=== PATIENT | female | born 1995 | race Caucasian/White ===

== ENCOUNTER 2018-11-22 22:56 | Inpatient (IN) ==
[2018-11-22] MEDS ORDERED: BUTORPHANOL 2 MG/ML VIAL IV PRN (23:08)
[2018-11-22] MEDS ORDERED: ONDANSETRON 4 MG/2 ML VIAL IV PRN (23:08)
[2018-11-22 23:30] LABS: Apearance,Urine CLEAR (Clear); Bilirubin,Urine Negative (Negative); Blood, Urine Small mg/dL (Negative); Glucose,Urine (UA) Negative (Negative); Ketones,Urine Negative (Negative); Mucus,Urine Occasional /LPF (Occasional); Nitrite,Urine Negative (Negative); Protein,Urine Negative; RBC,Urine 2 /HPF (0-4); Squamous Epithelial Cell,Urine Occasional /HPF (0-10); Urine Color Yellow (Yellow); Urine Specific Gravity 1.008 (1.001-1.035); Urine Urobilinogen < 2.0 EU/DL (0.2-1.0); WBC,Urine <1 /HPF (0-6)
[2018-11-22] MEDS: LACTATED RINGERS 1,000 ML IV SCH (23:36)
[2018-11-22 23:42] LABS: Basophils % 0.3 % (0.0-0.8); Eosinophils % 0.2 % (0.00-10.9); Hematocrit 35.8 VOL% (35.7-47.0); Hemoglobin 11.9 GM/DL (12.0-16.0); Immature Granulocytes % 1.7 %; Immature Granulocytes Absolute 0.25 #; Lymphocytes # 2.5 10*3/uL (1.4-4.0); Lymphocytes % 17.3 % (21.3-54.2); Mean Corpuscular HGB Conc 33.2 GM/DL (32-36); Mean Corpuscular Volume 88.8 FL (87-102); Mean Platelet Volume 11.8 FL (9.6-12.0); Neutrophils % 72.5 % (38.7-73.9); Platelet Count 184 T/CUMM (130-400); Red Blood Count 4.03 MC/CUMM (3.8-5.5); Red Cell Distribution Width 13.5 % (9.3-17.3); White Blood Count 14.4 T/CUMM (4-12)
[2018-11-22] MEDS: OXYTOCIN/LR 20 UNIT/1,000 ML BAG IV SCH (23:58)
[2018-11-23 00:03] LABS: Alanine Aminotransferase 14 U/L (13-56); Albumin 2.5 G/DL (3.4-5.0); Alkaline Phosphatase 166 U/L (45-117); Aspartate Amino Transferase 14 U/L (0-37); Bilirubin,Total < 0.39 MG/DL (0.2-1.0); Blood Urea Nitrogen 5 MG/DL (7-18); Glucose 87 MG/DL (74-106); Osmolality,Calculated 272.5 MOS/KG (273-304); Total Protein 6.2 G/DL (6.4-8.3)
[2018-11-23 00:53] LABS: Barbiturates Screen,Urine Negative (Negative); Benzodiazepines Screen,Urine Negative (Negative); Cannabinoid Screen,Urine Negative (Negative); Opiate Screen,Urine Negative (Negative); Phencyclidine Screen,Urine Negative (Negative)
[2018-11-23] MEDS ORDERED: CITRIC ACID/SODIUM CITRATE 30 ML UDCUP PO ONE (06:25)
[2018-11-23] MEDS ORDERED: FAMOTIDINE 20 MG/2 ML VIAL IV ONE (06:25)
[2018-11-23] MEDS ORDERED: PROMETHAZINE 25 MG/1 ML VIAL IM ONE (06:25)
[2018-11-23] MEDS ORDERED: NALOXONE 0.4 MG/ML VIAL IV PRN (06:25)
[2018-11-23] MEDS ORDERED: diphenhydrAMINE 50 MG/1 ML VIAL IV PRN (06:25)
[2018-11-23] MEDS ORDERED: hydrOXYzine HCL 25 MG/1 ML VIAL IM PRN (06:25)
[2018-11-23] MEDS ORDERED: ePHEDrine 50 MG/ML AMP IV PRN (06:25)
[2018-11-23] MEDS: LACTATED RINGERS 1,000 ML IV SCH ×2 (06:31→08:53)
[2018-11-23] MEDS: fentaNYL 2 MCG/ROPIV 0.2% EPID 100 ML EPIDURAL SCH ×2 (08:52→14:20)
[2018-11-23 09:13] LABS: Apearance,Urine CLEAR (Clear); Bilirubin,Urine Negative (Negative); Blood, Urine Small mg/dL (Negative); Glucose,Urine (UA) Negative (Negative); Ketones,Urine Negative (Negative); Nitrite,Urine Negative (Negative); Protein,Urine Negative; RBC,Urine <1 /HPF (0-4); Squamous Epithelial Cell,Urine Occasional /HPF (0-10); Urine Color Yellow (Yellow); Urine Specific Gravity 1.008 (1.001-1.035); Urine Urobilinogen < 2.0 EU/DL (0.2-1.0); WBC,Urine 1 /HPF (0-6)
[2018-11-23] MEDS: cefOXitin 2,000 MG in SYRINGE 1 EACH IV SCH ×2 (14:28→21:31)
[2018-11-23] MEDS ORDERED: LIDOCAINE 1% 50 ML VIAL ONE (16:07)
[2018-11-23] MEDS ORDERED: CARBOPROST TROMETHAMINE 250 MCG/ML AMP IM ONE (16:08)
[2018-11-23] MEDS ORDERED: METHYLERGONOVINE 0.2 MG/1 ML AMP ONE (16:08)
[2018-11-23] MEDS ORDERED: miSOPROStol 200 MCG TABLET ONE ×2 (16:08→16:11)
[2018-11-23 16:57] LABS: Cord Arterial Blood HCO3 22.7 MMOL/L
[2018-11-23 17:00] LABS: Cord Venous Blood HCO3 21.1 MMOL/L; Cord Venous Blood PCO2 38.9 MMHG; Cord Venous Blood PO2 35.6 MMHG
[2018-11-23] MEDS: OXYTOCIN/LR 20 UNIT/1,000 ML BAG IV SCH (17:31)
[2018-11-23] MEDS ORDERED: LANOLIN 50% CREAM 0.3 OZ TUBE TOP PRN (20:28)
[2018-11-23] MEDS ORDERED: BENZOCAINE 20%/MENTHOL 0.5% SPRAY 56 GM CAN TOP PRN (20:28)
[2018-11-23] MEDS ORDERED: DIPH/TET/ACEL PERT BOOSTER VACCINE 0.5 ML VIAL IM ONE (20:28)
[2018-11-23] MEDS ORDERED: RHO(D) IMMUNE GLOBULIN 300 MCG SYRINGE IM ONE (20:28)
[2018-11-23] MEDS ORDERED: ACETAMINOPHEN 325 MG TABLET PO SCH (20:28)
[2018-11-23] MEDS ORDERED: MEASLES/MUMPS/RUBELLA VACCINE 0.5 ML VIAL SUBCUT ONE (20:28)
[2018-11-23] MEDS ORDERED: HYDROCORTISONE 2.5% RECTAL CREAM 30 GM TUBE TOP PRN (20:28)
[2018-11-23] MEDS ORDERED: WITCH HAZEL PADS 100/JAR TOP PRN (20:28)
[2018-11-23] MEDS ORDERED: BISACODYL 10 MG SUPP RECTAL PRN (20:28)
[2018-11-23] MEDS ORDERED: KETOROLAC 30 MG/1 ML VIAL IV SCH (21:00)
[2018-11-23] MEDS: SERTRALINE 50 MG TABLET PO SCH (21:26)
[2018-11-23] MEDS: DOCUSATE SODIUM 100 MG CAPSULE PO SCH (21:26)
[2018-11-23] MEDS: ACETAMINOPHEN 500 MG TABLET PO SCH (21:26)
[2018-11-23] MEDS: KETOROLAC 60 MG/2 ML VIAL IM SCH (21:28)
[2018-11-24] MEDS: ACETAMINOPHEN 500 MG TABLET PO SCH ×4 (03:01→22:05)
[2018-11-24] MEDS: cefOXitin 2,000 MG in SYRINGE 1 EACH IV SCH ×3 (03:03→16:01)
[2018-11-24] MEDS: KETOROLAC 60 MG/2 ML VIAL IM SCH ×3 (03:11→16:00)
[2018-11-24 06:22] LABS: Basophils # 0.1 10*3/uL (0.0-0.2); Basophils % 0.4 % (0.0-0.8); Eosinophils % 0.3 % (0.00-10.9); Hematocrit 34.8 VOL% (35.7-47.0); Hemoglobin 11.5 GM/DL (12.0-16.0); Immature Granulocytes % 1.2 %; Immature Granulocytes Absolute 0.18 #; Mean Corpuscular Volume 89.5 FL (87-102); Mean Platelet Volume 11.6 FL (9.6-12.0); Monocytes % 7.4 % (1.7-12.7); Neutrophils % 77.7 % (38.7-73.9); Platelet Count 163 T/CUMM (130-400); Red Blood Count 3.89 MC/CUMM (3.8-5.5); Red Cell Distribution Width 13.7 % (9.3-17.3); White Blood Count 15.6 T/CUMM (4-12)
[2018-11-24] MEDS: DOCUSATE SODIUM 100 MG CAPSULE PO SCH ×2 (09:49→20:37)
[2018-11-24] MEDS: SERTRALINE 50 MG TABLET PO SCH ×2 (09:50→20:38)
[2018-11-24] MEDS: IBUPROFEN 800 MG TABLET PO SCH (20:37)
[2018-11-25] MEDS: ACETAMINOPHEN 500 MG TABLET PO SCH ×2 (03:33→09:02)
[2018-11-25] MEDS: IBUPROFEN 800 MG TABLET PO SCH ×4 (06:11→21:31)
[2018-11-25] MEDS: DOCUSATE SODIUM 100 MG CAPSULE PO SCH ×2 (08:56→21:31)
[2018-11-25] MEDS: SERTRALINE 50 MG TABLET PO SCH ×2 (08:59→21:31)
[2018-11-25 11:46] VITALS: BP 129/88
== END 2018-11-25 21:53 | disposition home or self-care (01) | DRG 560 ==
LOC: N.LDOUT 22:56 → N.LD 23:00 → N.OB 11-23 20:27
PROVIDERS: ADMIT Obstetrics & Gynecology; ATTEND Obstetrics & Gynecology